=== PATIENT | male | born 1945 | race Hispanic/Latino ===

== ENCOUNTER 2019-05-08 07:46 | Day surgery (SDC) | payer MEDICARE ==
[~2019-05-08] VITALS: Ht 167.6 cm; Wt 80.1 kg
[~2019-05-08 07:46] MED LIST: SODIUM CHLORIDE 0.9% 1000ML 1,000 ML IV ONE
[2019-05-08 09:43] VITALS: BP 139/71
[2019-05-08] MEDS ORDERED: BRIM5DRO OP (09:57)
[2019-05-08] MEDS ORDERED: CLON1PAT13 TD (09:57)
[2019-05-08] MEDS ORDERED: HYDR25TA PO (09:57)
[2019-05-08] MEDS ORDERED: AMLO5TAB9 PO (09:57)
[2019-05-08] MEDS ORDERED: ATOR40TA71 PO (09:57)
[2019-05-08] MEDS ORDERED: LISI40TA4 PO (09:57)
[2019-05-08] MEDS ORDERED: CLOP75TA14 PO (09:57)
[2019-05-08] MEDS ORDERED: FISH1CAP27 PO (09:57)
[2019-05-08] MEDS ORDERED: METAGLIP (09:57)
[2019-05-08] MEDS ORDERED: PROPOFOL 10 MG/ML 20ML VIAL IV ONE (10:24)
[2019-05-08] MEDS ORDERED: LIDOCAINE HCL 2% 20ML ONE (10:26)
[2019-05-08] MEDS ORDERED: PHENYLEPHRINE HCL 10 MG/ML 1ML VIAL IV ONE (10:48)
[2019-05-08 10:56] VITALS: BP 102/57
[2019-05-08 11:01] VITALS: BP 109/70
[2019-05-08 11:06] VITALS: BP 114/75
[2019-05-08 11:11] VITALS: BP 115/78
== END 2019-05-08 11:20 | disposition home or self-care (01) ==
LOC: DAH 07:46 → ENDO 07:46
PROVIDERS: ATTEND Internal Medicine
DX: D12.2 Benign neoplasm of ascending colon (principal); K63.5 Polyp of colon; K57.30 Diverticulosis of large intestine without perforation or abscess without bleeding; K64.0 First degree hemorrhoids; E78.5 Hyperlipidemia, unspecified; E11.9 Type 2 diabetes mellitus without complications; I50.9 Heart failure, unspecified; I11.0 Hypertensive heart disease with heart failure; K59.00 Constipation, unspecified; I25.810 Atherosclerosis of coronary artery bypass graft(s) without angina pectoris; J44.9 Chronic obstructive pulmonary disease, unspecified; Z86.010 Personal history of colon polyps; Z79.01 Long term (current) use of anticoagulants; Z79.82 Long term (current) use of aspirin; Z79.899 Other long term (current) drug therapy
CPT/HCPCS: 45385; 82948 ×2; 88305; A4215; A4221; A4222; A4223; A4606; A4615; A4663; J2370; J2704; J3490; J7030

== ENCOUNTER 2021-03-23 00:07 | Emergency (ER) | payer OTHER, MEDICARE ==
[~2021-03-23] VITALS: Ht 167.6 cm; Wt 79.4 kg
[~2021-03-23 00:07] MED LIST changes: +AMLO-257 PO; +ATOR40TA71 PO; +BRIM5DRO OP; +CLON1PAT13 TD; +CLOP75TA14 PO; +FISH1CAP27 PO; +HYDR25TA PO; +LISI40TA9 PO; +METAGLIP; -SODIUM CHLORIDE 0.9% 1000ML 1,000 ML IV ONE
[2021-03-23 01:03] LABS: HEMATOCRIT 31.2 % (42-54); MEAN CORPUSCULAR HEMOGLOBIN 31.4 pg (27.0-33.0); MEAN CORPUSCULAR HGB CONC 34.9 g/dL (32.0-36.0); MEAN CORPUSCULAR VOLUME 89.9 fL (79-99); PLATELET COUNT (AUTO) 174 K/uL (130-400); RED BLOOD CELL COUNT(AUTO) 3.47 MIL/uL (4.50-6.20); RED CELL DISTRIBUTION WIDTH 12.3 % (11.0-15.5); WHITE BLOOD COUNT (AUTO) 6.3 K/uL (4.8-10.8)
[2021-03-23 01:09] VITALS: BP 165/76
[2021-03-23 01:17] LABS: ALBUMIN 3.6 g/dL (3.5-5.0); BILIRUBIN,TOTAL 0.6 mg/dL (0.2-1.0); CREATININE 1.2 mg/dL (0.5-1.5); TOTAL PROTEIN, SERUM 7.6 g/dL (6.0-8.3)
[2021-03-23 01:18] LABS: POTASSIUM 2.8 mmol/L (3.5-5.1)
[2021-03-23 01:22] LABS: LYMPHOCYTES % (MANUAL) 14 % (22-44); MAN.DIFF COMMENT-IMPRESSION MANUAL DIFFERENTIAL; MONOCYTES % (MANUAL) 6 % (2-9); SEGMENTED NEUTROPHILS % 80 % (40-70)
[2021-03-23 01:23] LABS: PLATELET MORPHOLOGY COMMENT ADEQUATE
[2021-03-23 01:24] LABS: B-TYPE NATRIURETIC PEPTIDE 173 pg/mL (0-100)
[2021-03-23] MEDS ORDERED: POTASSIUM BICARB/CIT AC 25 MEQ TABLET.EFF PO ONE (01:30)
[2021-03-23] MEDS ORDERED: IOHEXOL 350 MG/ML 100ML INFUS..BTL IV ONE (01:55)
[2021-03-23 02:17] VITALS: BP 147/77
[2021-03-23 03:34] VITALS: BP 134/70
[2021-03-23] MEDS ORDERED: AZIT500T PO (03:49)
[2021-03-23] MEDS ORDERED: DEXA6TAB PO (03:49)
[2021-03-23] MEDS ORDERED: LORA-868 PO (03:49)
[2021-03-23] MEDS ORDERED: ALBUHFA IH (03:49)
== END 2021-03-23 04:08 | disposition home or self-care (01) ==
LOC: EDH 00:07
DX: U07.1 COVID-19 (principal); J12.82 Pneumonia due to coronavirus disease 2019; E11.9 Type 2 diabetes mellitus without complications; E78.5 Hyperlipidemia, unspecified; I10 Essential (primary) hypertension; Z79.899 Other long term (current) drug therapy
CPT/HCPCS: 36415; 71045; 71275; 80053; 83880; 84484; 85025; 85378; 87635; 93005; 99285; C9803; Q9967

== ENCOUNTER → 2023-03-22 | Outpatient (CLI) | payer OTHER, MEDICARE ==
[~2023-03-22] MED LIST changes: +AEC81 PO; +ALBUHFA IH; +AZIT500T PO; +CLOP-31 PO; -CLOP75TA14 PO; +DEXA6TAB PO; +GLIP1TAB6 PO; +LORA-868 PO
[2023-03-22 12:43] LABS: ALBUMIN 3.6 g/dL (3.5-5.0); BILIRUBIN,TOTAL 0.4 mg/dL (0.2-1.0); CREATININE 1.6 mg/dL (0.5-1.5); TOTAL PROTEIN, SERUM 7.4 g/dL (6.0-8.3)
[2023-03-22 12:44] LABS: POTASSIUM 2.9 mmol/L (3.5-5.1)
== END | disposition home or self-care (01) ==
LOC: LAB 08:44
PROVIDERS: ATTEND Internal Medicine Cardiovascular Disease
DX: E78.2 Mixed hyperlipidemia (principal)
CPT/HCPCS: 36415; 80053; 80061

== ENCOUNTER → 2023-03-24 | Outpatient (CLI) | payer OTHER, MEDICARE ==
[2023-03-24 16:51] LABS: CREATININE 1.6 mg/dL (0.5-1.5); POTASSIUM 3.7 mmol/L (3.5-5.1)
== END | disposition home or self-care (01) ==
LOC: LAB 11:20
PROVIDERS: ATTEND Internal Medicine Cardiovascular Disease
DX: I10 Essential (primary) hypertension (principal); E78.2 Mixed hyperlipidemia; I25.2 Old myocardial infarction
CPT/HCPCS: 36415; 80048

== ENCOUNTER 2023-06-02 09:20 | Observation (INO) | payer OTHER, MEDICARE ==
[~2023-06-02] VITALS: Ht 167.6 cm; Wt 83.9 kg
[2023-06-02] MEDS ORDERED: ASPIRIN 325MG TAB PO ONE (09:30)
[2023-06-02 09:46] LABS: BASOPHILS # (AUTO) 0.02 K/uL (0.00-0.20); BASOPHILS % (AUTO) 0.2 % (0.0-5.0); EOSINOPHILS # (AUTO) 0.31 K/uL (0.00-0.70); EOSINOPHILS % (AUTO) 3.5 % (0.0-8.0); HEMATOCRIT 32.2 % (42-54); IMMATURE GRANULOCYTE ABSOLUTE 0.02 K/uL (0-1); LYMPHOCYTES # (AUTO) 1.6 K/uL (1.0-4.8); LYMPHOCYTES % (AUTO) 17.4 % (21.0-51.0); MEAN CORPUSCULAR HEMOGLOBIN 30.6 pg (27.0-33.0); MEAN CORPUSCULAR HGB CONC 32.9 g/dL (32.0-36.0); MEAN CORPUSCULAR VOLUME 93.1 fL (79-99); MONOCYTES # (AUTO) 0.9 K/uL (0.1-1.0); MONOCYTES % (AUTO) 10.4 % (3.0-13.0); NEUTROPHILS # (AUTO) 6.1 K/uL (1.8-7.7); NEUTROPHILS % (AUTO) 68.3 % (40.0-77.0); PLATELET COUNT (AUTO) 200 K/uL (130-400); RED BLOOD CELL COUNT(AUTO) 3.46 MIL/uL (4.50-6.20); RED CELL DISTRIBUTION WIDTH 13.8 % (11.0-15.5)
[2023-06-02 09:56] LABS: CREATININE 1.4 mg/dL (0.5-1.5); POTASSIUM 3.3 mmol/L (3.5-5.1)
[2023-06-02] MEDS ORDERED: NITROGLYCERIN 0.4 MG SL TAB SL PRN (10:00)
[2023-06-02 10:02] LABS: ALBUMIN 3.8 g/dL (3.5-5.0); BILIRUBIN,TOTAL 0.6 mg/dL (0.2-1.0); MAGNESIUM 1.8 mg/dL (1.80-2.40); TOTAL PROTEIN, SERUM 7.3 g/dL (6.0-8.3)
[2023-06-02 10:05] LABS: B-TYPE NATRIURETIC PEPTIDE 1970 pg/mL (0-100)
[2023-06-02] MEDS ORDERED: FUROSEMIDE 40MG VIAL IV ONE (11:00)
[2023-06-02] MEDS ORDERED: SACU1TAB7 PO (11:56)
[2023-06-02] MEDS ORDERED: REGADENOSON 0.4 MG/5 ML PF SYG IVP SCH (12:30)
[2023-06-02 15:30] VITALS: BP 136/81; PULSE 74; RESP 19
[2023-06-02 18:11] VITALS: BP 133/78
[2023-06-02 19:00] VITALS: O2SAT 98
[2023-06-02 20:11] VITALS: BP 132/76; PULSE 78; RESP 18
[2023-06-02] MEDS: SACUBITRIL/VALSARTAN 1 EACH TABLET PO SCH (20:54)
[2023-06-02] MEDS: METFORMIN HCL PO SCH (20:55)
[2023-06-02] MEDS: GLIPIZIDE PO SCH (20:55)
[2023-06-02] MEDS ORDERED: ENOXAPARIN SODIUM 80 MG/0.8 ML SQ ONE (21:00)
[2023-06-02] MEDS ORDERED: DEXTROSE 50%-WATER 50 ML DISP.SYRIN IV PRN (22:30)
[2023-06-02] MEDS ORDERED: GUAIFENESIN SUGAR-FREE 100 MG/5 ML UDCUP PO PRN (22:30)
[2023-06-02] MEDS ORDERED: GLUCAGON 1MG KIT 1 MG ML IM PRN (22:30)
[2023-06-02] MEDS ORDERED: POTASSIUM CHLORIDE 20MEQ/100ML 100 ML IV PRN (22:30)
[2023-06-02] MEDS ORDERED: KCL 20 MEQ ERTAB PO PRN (22:30)
[2023-06-02] MEDS: POTASSIUM CHLORIDE 10% ELIXIR 20 MEQ/15 ML UDCUP PO PRN (22:38)
[2023-06-03 00:02] VITALS: BP 138/70; PULSE 82; RESP 18
[2023-06-03 03:44] LABS: CREATININE 1.4 mg/dL (0.5-1.5); POTASSIUM 3.1 mmol/L (3.5-5.1)
[2023-06-03 04:01] VITALS: BP 130/72; PULSE 71; RESP 18
[2023-06-03 07:45] VITALS: O2SAT 97
[2023-06-03 08:02] VITALS: BP 137/78; PULSE 72; RESP 19
[2023-06-03] MEDS: SACUBITRIL/VALSARTAN 1 EACH TABLET PO SCH (09:00)
[2023-06-03] MEDS: METFORMIN HCL PO SCH (09:00)
[2023-06-03] MEDS ORDERED: ASPIRIN 81 MG EC TAB PO SCH ×2 (09:00)
[2023-06-03] MEDS: GLIPIZIDE PO SCH (09:00)
[2023-06-03] MEDS ORDERED: ATORVASTATIN 40 MG TABLET PO SCH (09:00)
[2023-06-03] MEDS ORDERED: INSULIN LISPRO 100 UNIT/ML 3ML SQ SCH (09:00)
[2023-06-03] MEDS ORDERED: AMLODIPINE 5 MG TAB PO SCH (09:00)
[2023-06-03] MEDS ORDERED: CLOPIDOGREL 75MG TAB PO SCH ×2 (09:00)
[2023-06-03 12:00] VITALS: BP 138/72; PULSE 78; RESP 20
[2023-06-03] MEDS: POTASSIUM CHLORIDE 10% ELIXIR 20 MEQ/15 ML UDCUP PO PRN ×3 (15:25→17:30)
[2023-06-03 16:00] VITALS: BP 132/68; PULSE 73; RESP 19
== END 2023-06-03 17:38 | disposition home or self-care (01) ==
LOC: EDH 09:20 → EDHIP 11:42 → 3BH 15:30
PROVIDERS: ADMIT Internal Medicine; ATTEND Internal Medicine
DX: R07.89 Other chest pain (principal); I11.0 Hypertensive heart disease with heart failure; I50.9 Heart failure, unspecified; E11.65 Type 2 diabetes mellitus with hyperglycemia; E78.00 Pure hypercholesterolemia, unspecified; I24.9 Acute ischemic heart disease, unspecified; I25.10 Atherosclerotic heart disease of native coronary artery without angina pectoris; I45.10 Unspecified right bundle-branch block; Z79.01 Long term (current) use of anticoagulants; Z79.84 Long term (current) use of oral hypoglycemic drugs; Z79.82 Long term (current) use of aspirin; Z79.899 Other long term (current) drug therapy
CPT/HCPCS: 96374; 96372; 93005; 99285; 82550 ×2; 83735; 83874 ×2; 84484 ×3; 80053; 83880; 85025; 36415 ×2; 71045; 93017; 78452; 93306; 93356; 80048; 82948 ×3; G0378 ×26; J1650; J1940; J2785; A9500 ×2

== ENCOUNTER → 2024-10-23 | Outpatient (CLI) | payer OTHER, MEDICARE ==
[~2024-10-23] MED LIST changes: -ALBUHFA IH; -AZIT500T PO; -BRIM5DRO OP; -CLON1PAT13 TD; -DEXA6TAB PO; -FISH1CAP27 PO; -GLIP1TAB6 PO; -HYDR25TA PO; -LISI40TA9 PO; -LORA-868 PO; -METAGLIP; +SACU1TAB7 PO
--- NOTE | 2024-10-23 13:06 | HMCIMG ---
Exam Type: CHEST 2VWS Clinical Information: CHRONIC SYSTOLIC CHF Comparison: None Findings: There is cardiomegaly and there is status post median sternotomy. The lungs are clear of infiltrates. Impression: Clear lungs.
== END | disposition home or self-care (01) ==
LOC: RAH 12:31
PROVIDERS: ATTEND Internal Medicine Cardiovascular Disease
DX: I50.22 Chronic systolic (congestive) heart failure (principal); I51.7 Cardiomegaly
CPT/HCPCS: 71046

== ENCOUNTER → 2024-11-20 | Outpatient (CLI) | payer OTHER, MEDICARE ==
[2024-11-20 12:54] LABS: CREATININE 2.2 mg/dL (0.5-1.3); MAGNESIUM 2.3 mg/dL (1.80-2.40); POTASSIUM 4.4 mmol/L (3.5-5.1)
== END | disposition home or self-care (01) ==
LOC: LAB 10:15
PROVIDERS: ATTEND Internal Medicine Cardiovascular Disease
DX: I11.0 Hypertensive heart disease with heart failure (principal); I50.22 Chronic systolic (congestive) heart failure; I48.91 Unspecified atrial fibrillation; I25.2 Old myocardial infarction; D64.9 Anemia, unspecified
CPT/HCPCS: 36415; 80048; 83735; 83880